=== PATIENT | male | born 1970 ===

== ENCOUNTER → 2018-12-01 08:24 | Day surgery (SDC) | payer BC ==
[~2018-12-01 08:24] MED LIST: Artificial Tear OPHTH.OINT* 3.5 GM ONE; BSS OPTH.SOL* BTL ONE; Buffered Lidocaine 1% SYRIN* 1 ML/SYRINGE INTRADERM ONE; Ibuprofen TAB* 200 MG ONE; Lactated Ringers 1000 ML Bag* 1,000 ML IV SCH; Lidocaine 1% w EPI 1:100,000* 30 ML VIAL ONE; Midazolam* 1 MG/ML 2 ML VIAL (2 MG) ONE; Midazolam* 1 MG/ML 5 ML VIAL (5 MG) ONE; Naloxone* 0.4 MG/ML 1 ML VIAL IV PRN; Propofol* 10 MG/ML 20 ML BTL ONE; Tetracaine 0.5% OPTH.SOL 4 ML* 1 DROP BTL ONE; ceFAZolin 2 GM in NS PREMIX(*) 2 GM/100 ML BAG IVPB ONE; fentaNYL* 50 MCG/ML 2 ML VIAL (100 MCG VIAL) ONE
[2018-12-01 12:03] VITALS: BP 110/81
== END | disposition home or self-care (01) ==
LOC: OR 08:24
PROVIDERS: ATTEND Plastic Surgery
DX: C44.1192 Basal cell carcinoma of skin of left lower eyelid, including canthus (principal); F41.8 Other specified anxiety disorders; J30.2 Other seasonal allergic rhinitis; E66.9 Obesity, unspecified
CPT/HCPCS: 88305; 88331; 88332; A9270-GY; J0690; J2250; J2704; J3010

== ENCOUNTER 2019-07-07 17:22 | Emergency (ER) | payer BC ==
--- OUTSIDE RECORDS SUMMARY | 2019-07-07 17:30 | XMS REPORT | Summary of Care ---
:1970 Author Organization [facility] Address [address] [place] [address] Care Team Providers Name Role Phone JessicaUsman eid Primary Care Provider Reason for Visit Reason Comments Follow Up f/u anal condyloma Encounter Details Date Type Department Care Team Description 06/08/2019 Office Visit [facility] Maico Olivas MD Anal condyloma [address] (Primary Dx) [place] [id number] [place] [id number] Allergies No Known Allergiesdocumented as of this encounter (statuses as of 06/08/2019) Medications Medication Sig Dispensed Refills Start Date End Date Status cetirizine Take 10 mg by 0 Active (ZYRTEC) 10 MG mouth Oral Tab NEEDED. paroxetine Take 1 Tab by 90 Tab 0 12/07/2018 Active (PAXIL) 20 MG mouth DAILY. Oral Tab Imiquimod 1 Appl by Apply 12 Each 3 06/08/2019 Active (ALDARA) 5 % externally Apply externally route Cream DIRECTED. 3 days on (Friday, Friday, and Friday) and 4 days off up to 16 weeks Imiquimod 1 Appl by Apply 12 Each 3 12/22/2018 Discontinued (ALDARA) 5 % externally 0 (Reorder) Apply externally route Cream DIRECTED. 3 days on (Friday, Friday, and Friday) and 4 days off up to 16 weeks oseltamivir Take 1 Cap by 10 Cap 0 03/26/2019 Discontinued (TAMIFLU) 75 MG mouth DAILY. 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 Set realistic goal of 1# wt reduction /week set 10 week goals. Obesity, unspecified 08/16/2011 Anxiety Disorder 01/13/2007 documented as of this encounter (statuses as of 06/08/2019) Immunizations Name Administration Dates Next Due Influenza (IM) Preservative Free 03/01/2018, 02/10/2016 Influenza Vaccine Whole 01/25/2008 TDAP Vaccine 01/25/2008 documented as of this encounter Social History Tobacco Use Types Packs/Day Years Used Date Never Smoker Smokeless Tobacco: Never Used Alcohol Use Drinks/Week oz/Week Comments No 0 Standard drinks or equivalent 0.0 Sex Assigned at Date Recorded Not on file Job Start Date Occupation Industry Not on file Not on file Not on file Travel History Travel Start Travel End No recent travel history available. documented as of this encounter Last Filed Vital Signs Not on filedocumented in this encounter Progress Notes Zina Hampton, VILMA-MIRIAN - 06/08/2019 2:30 PM EST PATIENT: Jas Russ : 1970 DATE OF SERVICE: 06/08/2019 REFERRING PRACTITIONER: Self-Referred PRIMARY CARE PROVIDER: Usman Lopez CHIEF COMPLAINT: Chief Complaint Patient presents with Follow Up f/u anal condyloma Subjective HISTORY OF PRESENT ILLNESS: Jas Russ is a 49-y.o. 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 Patient first noted the lesions in mid July,. He was placed on Aldara back on 09/22/2018. He completed the 12 week course recommended. He was evaluated again in 12/2018 and due to persistent condylomatous disease he elected to repeat the Aldara for an additional 12 weeks. He completed his second course back in 03/2019. Initially he noted improvement in the perianal lesions. However, since completing his therapy he does not recurrence once again. He returns now for further evaluation. He has been in a monogamous heterosexual relationship for the past 30 years. He denies ever having anal intercourse. 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 Imiquimod (ALDARA) 5 % Apply externally Cream 1 Appl by Apply externally route DIRECTED. 3days on (Friday, Friday, and Friday) and 4 days off up to 16 weeks paroxetine (PAXIL) 20 MG Oral Tab Take 1 Tab by mouth DAILY. No current facility-administered medications for this visit. No Known Allergies Social History Socioeconomic History Marital status: Spouse name: Not on file Number of children: Not on file Years of education: Not on file Highest education level: Not on file Occupational History Not on file Social Needs Financial resource strain: Not on file Food insecurity Worry: Not on file Inability: Not on file Transportation needs Medical: Not on file Non-medical: Not on file Tobacco Use Smoking status: Never Smoker Smokeless tobacco: Never Used Substance and Sexual Activity Alcohol use: No Alcohol/week: 0.0 standard drinks Drug use: No Sexual activity: Yes Partners: Female Lifestyle Physical activity Days per week: Not on file Minutes per session: Not on file Stress: Not on file Relationships Social connections Talks on phone: Not on file Gets together: Not on file Attends jainism service: Not on file Active member of club or organization: Not on file Attends meetings of clubs or organizations: Not on file Relationship status: Not on file Intimate partner violence Fear of current or ex partner: Not on file Emotionally abused: Not on file Physically abused: Not on file Forced sexual activity: Not on file Other Topics Concern Back Care Not Asked Bike Helmet Not Asked Blood Transfusions No Caffeine Concern Not Asked Exercise No Comment: intermittent Hobby Hazards Not Asked International Travel Not Asked Service Not Asked Occupational Exposure Not Asked Seat Belt Not Asked Self-Exams Not Asked Sleep Concern Not Asked Special Diet Not Asked Stress Concern Not Asked Weight Concern Not Asked Social History Narrative Lives with , 2 daughter. Teacher at [employer]. REVIEW OF SYSTEMS A remaining review of systems was negative except for as noted in the history of present illness/subjective and past medical history. Objective PHYSICAL EXAMINATION: VITALS: There were no vitals taken for this visit. There is no height or weight on file to calculate BMI. GENERAL: alert, oriented, no acute distress SKIN: normal, no rashes or abnormalities noted. HEENT: pupils equal, round, reactive to light, extraocular movement intact and normal dentition. LUNGS: clear to auscultation bilaterally. HEART: regular rhythm, no murmurs, no gallops, no rubs. EXTREMITIES: no lower extremity edema. NEUROLOGICAL: alert and oriented x3. ABDOMEN: general exam: nondistended, nontender. RECTAL: Perianal condyloma - carpeting the perianal region w/ migration into the anal canal. IMPRESSION: ICD-9-CM ICD-10-CM 1. Anal condyloma 078.11 A63.0 CASE REQUEST OPERATING ROOM Plan PLAN: Recommend surgical removal of the anal condyloma. 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 Tentative surgical date of 11/24/2019. Continue w/ Aldara application three times weekly x 12 weeks. We will refill again if needed to attempt to keep the disease under control until the time of resection. Explained to patient this is a lifelong follow-up. He will need to be evaluated every 6 months for the first year once the lesions have fully resolved. As long as the lesions remain non-recurrent we will follow on an annual basis with a anoscopy at that time. Follow-up: Schedule follow-up here in 5 month(s). Author: EDWINA Dominguez 06/08/2019 15:25 Associated attestation - Maico Olivas MD - 06/08/2019 5:29 PM [facility] Supervising MD Documentation Date of Service: 06/08/2019 B# [id number] I saw and evaluated the patient. Discussed with resident and agree with the resident's findings andplan as documented in the resident's note. Additional Comments: Patient's examination today revealed numerous lesions around the perineal skin as well as in the anal canal. Therefore I recommended him to undergo surgical therapy both fulguration and excision. Patient understands all the risk and benefits. Patient wants to schedule this first week of November. Maico Olivas MD Supervising Physiciandocumented in this encounter Plan of Treatment Date Type Specialty Care Team Description 11/09/2019 Office Visit General Surgery Maico Olivas MD [address] [id number] [phone] 11/09/2019 Appointment Pre-Admission Testing 11/24/2019 Hospital Encounter [facility] Maico Olivas MD Short Procedure [address] [id number] [phone] 11/24/2019 Surgery [facility] Maico Olivas MD EXCISION ANAL [address] [place] [id number] [phone] Name Type Priority Associated Diagnoses Order Schedule CASE REQUEST OPERATING Procedures Routine Anal condyloma Ordered: 2019 ROOM Health Maintenance Due Date Last Done Comments DIABETES SCREENING 1989 LIPID DISORDER SCREENING 12/20/2013 12/20/2008, 10/25/2003, 05/18/2001 DTaP/Tdap/Td Vaccines (2 - 01/24/2018 01/25/2008 Tdap) INFLUENZA VACCINE (#1) 2019 03/01/2018, 02/10/2016, 01/25/2008 DEPRESSION SCREENING 09/23/2019 09/22/2018 HEPATITIS A IMMUNIZATION Aged Out No longer eligible based SERIES on patient's age to complete this topic HPV IMMUNIZATION SERIES Aged Out No longer eligible based on patient's age to complete this topic MENINGOCOCCAL VACCINE IMM Aged Out No longer eligible based on patient's age to complete this topic PNEUMOCOCCAL 0-64 YRS Aged Out No longer eligible based on patient's age to complete this topic documented as of this encounter Results Not on filedocumented in this encounter Visit Diagnoses Diagnosis Anal condyloma Condyloma acuminatum Diagnosis Anal condyloma Condyloma acuminatum Diagnosis Anal condyloma Condyloma acuminatum documented in this encounter Insurance Payer Benefit Plan / Subscriber ID Effective Dates Phone Address Type Group [employer] xxxxxxxxxxxx 2013-Present [employer] (Home) [facility] [phone] [place], [place] (Work) [id number] documented as of this encounter
[2019-07-07 17:44] VITALS: BP 146/100
--- NOTE | 2019-07-07 17:47 | UC ---
Throat Pain/Nasal Henry HPI - HPI Summary HPI Summary: 49-year-old male who has had a sore throat for approximately 2 or 3 days. He states that his teenage daughter has recently been diagnosed with mono. - History of Current Complaint Chief Complaint: UCGeneralIllness Stated Complaint: SORE THROAT Time Seen by Provider: 07/07/19 17:35 Hx Obtained From: Patient Onset/Duration: Gradual Onset, Lasting Days Severity: Mild Pain Intensity: 4 - Allergies/Home Medications Allergies/Adverse Reactions: Allergies Allergy/AdvReac Type Severity Reaction Status Date / Time No Known Allergies Allergy Verified 07/07/19 17:38 Home Medications: Home Medications Cetirizine HCl [Zyrtec] 1 tab PO DAILY PRN 11/23/18 [History Confirmed 07/07/19] PARoxetine HCL TAB* [Paxil TAB*] 20 mg PO QAM 11/23/18 [History Confirmed ] PMH/Surg Hx/FS Hx/Imm Hx Previously Healthy: Yes - Surgical History Surgical History: Yes Surgery Procedure, Year, and Place: 1996&1998-LEFT SHOULDER SURGERY FOR CHRONIC DISLOCATION-[facility] AND 2ND-SURGERY [facility]. KNEE SCOPING- [facility]. basal cell carcinoma removal L upper eyelid 2019 - Social History Occupation: Employed Full-time Lives: With Family Alcohol Use: Occasionally Alcohol Amount: 1-2 PER WEEK Substance Use Type: None Smoking Status (MU): Never Smoked Tobacco Review of Systems All Other Systems Reviewed And Are Negative: Yes Constitutional: Positive: Fever ENT: Positive: Sore Throat Is Patient Immunocompromised?: No Physical Exam Triage Information Reviewed: Yes Appearance: Well-Appearing, No Pain Distress, Well-Nourished Vital Signs: Initial Vital Signs Temp 98.3 F 07/07/19 17:39 Pulse 65 07/07/19 17:39 Resp 18 07/07/19 17:39 BP 146/100 07/07/19 17:39 Pulse Ox 99 07/07/19 17:39 Vital Signs Reviewed: Yes Eyes: Positive: Conjunctiva Clear ENT: Positive: Hearing grossly normal, Pharyngeal erythema, TMs normal, Uvula midline. Negative: Tonsillar swelling, Tonsillar exudate, Trismus, Muffled voice, Hoarse voice Neck: Positive: Supple, Nontender, No Lymphadenopathy Respiratory: Positive: Lungs clear, Normal breath sounds, No respiratory distress, No accessory muscle use Cardiovascular: Positive: RRR, No Murmur, Pulses Normal, Brisk Capillary Refill Abdomen Description: Positive: Nontender, Soft. Negative: CVA Tenderness (R), CVA Tenderness (L), Distended, Guarding, Hepatomegaly, Splenomegaly Bowel Sounds: Positive: Present Musculoskeletal Exam: Normal Neurological Exam: Normal Psychological Exam: Normal Skin Exam: Normal Throat Pain/Nasal Course/Dx - Course Course Of Treatment: Rapid strep test: Negative The patient refused a mono test at this point in time. He can do comfort measures at home and follow-up with his primary care provider Friday if he continues to have sore throat. He did not want any time off work. He works as a teacher in the school system. - Differential Dx/Diagnosis Provider Diagnosis: Pharyngitis Discharge ED - Sign-Out/Discharge Documenting (check all that apply): Patient Departure All imaging exams completed and their final reports reviewed: No Studies - Discharge Plan Condition: Good Disposition: HOME Patient Education Materials: Pharyngitis (ED) Referrals: Usman Lopez MD [Primary Care Provider] - Additional Instructions: Increase fluids, warm saltwater gargles, throat lozenges. May take Tylenol every 4 hours and alternate with Motrin every 8 hours for pain or fever. Definite follow-up with your primary care provider if you continue to have a sore throat on Friday. - Billing Disposition and Condition Condition: GOOD Disposition: Home
== END 2019-07-07 18:50 | disposition home or self-care (01) ==
LOC: UCEAST 17:22
DX: J02.9 Acute pharyngitis, unspecified (principal)
CPT/HCPCS: 87651; 99211; G0463